=== PATIENT | female | born 1955 | race African-American/Black ===

== ENCOUNTER 2018-02-23 21:11 | Inpatient (IN) | payer OTHER, MEDICAID ==
[~2018-02-23] VITALS: Ht 144.8 cm; Wt 49.9 kg
[~2018-02-23 21:11] MED LIST: FOLI-43 PO; MULT-1116 PO; THIA100T13 PO; UNKOWN
[2018-02-23] MEDS ORDERED: ONDANSETRON HCL 4MG/2ML INJ IV STA (21:27)
[2018-02-23] MEDS ORDERED: MORPHINE SULFATE 4 MG/ML CPJ (NOT FOR IM USE) IV STA (21:27)
[2018-02-24 00:06] LABS: BASOPHILS % 0.4 % (0.0-2.0); EOSINOPHILS % 0.9 % (0.0-5.0); HEMATOCRIT. 25.3 % (36.0-48.0); HEMOGLOBIN. 8.5 g/dL (12.0-16.0); LYMPHOCYTES % 17.9 % (20.0-50.0); MEAN CORPUSCULAR HEMOGLOBIN 30.9 pg (28.0-32.0); MONOCYTES % 8.6 % (2.0-8.0); NEUTROPHILS % 72.2 % (40.0-76.0); PLATELET 90 x1000/uL (130-400); RED BLOOD CELL COUNT 2.75 mill/uL (4.2-5.4); RED CELL DISTRIBUTION WIDTH 18.3 % (11.6-14.6)
[2018-02-24 00:11] LABS: CHLORIDE 109 mEq/L (98-107)
[2018-02-24 00:13] LABS: INR 1.4; PROTHROMBIN TIME 14.3 sec (9.1-11.1)
[2018-02-24] MEDS ORDERED: LEVOFLOXACIN 750MG PREMIX 150 ML IV ONE (02:00)
[2018-02-24] MEDS ORDERED: METRONIDAZOLE 500 MG PREMIX 100 ML IV ONE (02:00)
[2018-02-24 04:46] VITALS: BP 152/77
[2018-02-24 05:24] VITALS: BP 122/77
[2018-02-24] MEDS ORDERED: DOCUSATE SODIUM 100MG CAPSULE PO PRN (06:15)
[2018-02-24] MEDS ORDERED: MORPHINE SULFATE 4 MG/ML CPJ (NOT FOR IM USE) IV PRN (06:15)
[2018-02-24] MEDS ORDERED: ONDANSETRON HCL 4MG/2ML INJ IV PRN (06:15)
[2018-02-24] MEDS ORDERED: NA PHOS,M-B/NA PHOS,DI-BA ENEMA 118ML PR PRN (06:15)
[2018-02-24] MEDS ORDERED: HYDROCODONE/ACETAMINOPHEN 5/325MG TABLET PO PRN (06:15)
[2018-02-24] MEDS ORDERED: GUAIFENESIN 200MG/10ML SUGAR FREE UDC PO PRN (06:15)
[2018-02-24] MEDS ORDERED: CLONIDINE 0.1MG TABLET PO PRN (06:15)
[2018-02-24] MEDS ORDERED: MAGNESIUM/ALUMINUM HYDROXIDE/SIMETHICONE 30ML UDC PO PRN (06:15)
[2018-02-24] MEDS ORDERED: ACETAMINOPHEN 325MG TABLET PO PRN (06:15)
[2018-02-24 08:00] VITALS: BP 130/68
[2018-02-24] MEDS ORDERED: KCL 10MEQ/50ML PREMIX 50 ML IV NR (08:00)
[2018-02-24] MEDS: ENOXAPARIN 40MG/0.4ML SYR SUBCUT SCH (09:00)
[2018-02-24] MEDS: FUROSEMIDE 40MG/4ML VIAL IV SCH (09:10)
[2018-02-24 12:00] VITALS: BP 145/85
[2018-02-24 12:03] LABS: CHLORIDE 107 mEq/L (98-107)
[2018-02-24] MEDS ORDERED: SODIUM BICARBONATE 4% (2.4MEQ) 5ML VIAL IV ONE (12:27)
[2018-02-24] MEDS ORDERED: LIDOCAINE HCL 1% 10 MG/ML 10ML VIAL ONE (12:27)
[2018-02-24 16:00] VITALS: BP 121/85
[2018-02-24] MEDS: LORAZEPAM 2MG/ML CPJ IV PRN (18:42)
[2018-02-24] MEDS: METRONIDAZOLE 500 MG PREMIX 100 ML IV SCH (18:54)
[2018-02-24 18:57] LABS: FOLIC ACID (FOLATE) SERUM 13.5 ng/mL (>5.38)
[2018-02-24 19:15] LABS: HEPATITIS B SURFACE ANTIGEN NEGATIVE
[2018-02-24 19:43] LABS: HEPATITIS B CORE AB IGM NEGATIVE
[2018-02-24 19:44] LABS: HEPATITIS A AB IGM NEGATIVE (NEGATIVE)
[2018-02-24 20:00] VITALS: BP 137/82
[2018-02-24 20:41] LABS: AMMONIA 173 uMol/L (<32)
[2018-02-24] MEDS: LEVOFLOXACIN 500MG PREMIX 100 ML IV SCH (22:12)
[2018-02-24] MEDS ORDERED: POTASSIUM CHLORIDE 20MEQ TABLET SR PO SCH (22:28)
[2018-02-25] VITALS: BP 128/80
[2018-02-25] MEDS: METRONIDAZOLE 500 MG PREMIX 100 ML IV SCH ×3 (01:49→18:17)
[2018-02-25 03:38] LABS: *AMPHETAMINES SCREEN URINE NEGATIVE (NEGATIVE); *BARBITURATES SCREEN URINE NEGATIVE (NEGATIVE); *BENZODIAZEPINES SCREEN URINE NEGATIVE (NEGATIVE); *COCAINE SCREEN URINE NEGATIVE (NEGATIVE); METHADONE URINE SCREEN NEGATIVE (NEGATIVE); OPIATES URINE SCREEN PRESUMTIVE POSITIVE (NEGATIVE)
[2018-02-25 03:39] LABS: CANNABINOID URINE SCREEN NEGATIVE (NEGATIVE); PHENCYCLIDINE URINE SCREEN NEGATIVE (NEGATIVE)
[2018-02-25 04:00] VITALS: BP 124/77
[2018-02-25] MEDS: OMEPRAZOLE 20MG CAPSULE EXTENDED RELEASE PO SCH (07:16)
[2018-02-25 08:00] VITALS: BP 129/76
[2018-02-25] MEDS: FUROSEMIDE 40MG/4ML VIAL IV SCH (08:39)
[2018-02-25] MEDS: ENOXAPARIN 40MG/0.4ML SYR SUBCUT SCH (08:40)
[2018-02-25] MEDS ORDERED: LACTOBACILLUS GG CAPSULE PO SCH (09:00)
[2018-02-25 12:00] VITALS: BP 108/66
[2018-02-25] MEDS ORDERED: LIDOCAINE HCL 1% 10 MG/ML 10ML VIAL ONE (13:26)
[2018-02-25] MEDS ORDERED: SODIUM BICARBONATE 4% (2.4MEQ) 5ML VIAL IV ONE (13:26)
[2018-02-25] MEDS: IPRATROPIUM/ALBUTEROL 0.5-3(2.5)MG/3ML NEB INH PRN (15:42)
[2018-02-25] MEDS: DIPHENHYDRAMINE 50MG/ML VIAL IV PRN (15:52)
[2018-02-25 16:00] VITALS: BP 158/85
[2018-02-25 17:34] LABS: HEMATOCRIT. 31.2 % (36.0-48.0); HEMOGLOBIN. 10.1 g/dL (12.0-16.0); MEAN CORPUSCULAR HEMOGLOBIN 30.5 pg (28.0-32.0); MEAN CORPUSCULAR VOLUME 94.2 fL (81.0-99.0); MEAN PLATELET VOLUME 8.2 fl (7.4-10.4); PLATELET 100 x1000/uL (130-400); RED BLOOD CELL COUNT 3.31 mill/uL (4.2-5.4); RED CELL DISTRIBUTION WIDTH 18.6 % (11.6-14.6)
[2018-02-25 17:41] LABS: INR 1.5; PROTHROMBIN TIME 14.7 sec (9.1-11.1)
[2018-02-25 18:11] LABS: CHLORIDE 107 mEq/L (98-107)
[2018-02-25] MEDS: LACTULOSE 20G/30ML UDC PO SCH ×2 (18:17→23:52)
[2018-02-25 18:18] LABS: AMMONIA 123 uMol/L (<32)
[2018-02-25 18:21] LABS: LDL CHOLESTEROL 55 mg/dL (5-100)
[2018-02-25 18:23] LABS: HDL CHOLESTEROL 24 mg/dL (40-59)
[2018-02-25] MEDS ORDERED: DIATR MEGLU/DIATRIZOATE SOLN 30ML PO SCH (19:00)
[2018-02-25 20:00] VITALS: BP 118/70
[2018-02-25] MEDS: LEVOFLOXACIN 500MG PREMIX 100 ML IV SCH (20:41)
[2018-02-26] VITALS: BP 132/73
[2018-02-26] MEDS: METRONIDAZOLE 500 MG PREMIX 100 ML IV SCH ×3 (03:03→17:34)
[2018-02-26] MEDS: DIPHENHYDRAMINE 50MG/ML VIAL IV PRN (03:40)
[2018-02-26 04:00] VITALS: BP 130/84
[2018-02-26 06:42] LABS: PLATELET ESTIMATE SLIGHTLY DECREASED
[2018-02-26] MEDS: LACTULOSE 20G/30ML UDC PO SCH ×3 (06:47→17:31)
[2018-02-26] MEDS: OMEPRAZOLE 20MG CAPSULE EXTENDED RELEASE PO SCH (06:47)
[2018-02-26 07:23] LABS: INR 1.6; PROTHROMBIN TIME 16.1 sec (9.1-11.1)
[2018-02-26 07:46] LABS: HEMATOCRIT 24.5 % (36.0-48.0); HEMOGLOBIN 8.3 g/dL (12.0-16.0); MEAN CORPUSCULAR HEMOGLOBIN 31.2 pg (28.0-32.0); MEAN CORPUSCULAR VOLUME 92.1 fL (81.0-99.0); PLATELET 95 x1000/uL (130-400); RED BLOOD CELL COUNT 2.66 mill/uL (4.2-5.4); RED CELL DISTRIBUTION WIDTH 17.8 % (11.6-14.6)
[2018-02-26 08:00] VITALS: BP 100/71
[2018-02-26] MEDS: FUROSEMIDE 40MG/4ML VIAL IV SCH ×2 (08:11→08:14)
[2018-02-26] MEDS: ENOXAPARIN 40MG/0.4ML SYR SUBCUT SCH (08:14)
[2018-02-26 09:12] LABS: CHLORIDE 109 mEq/L (98-107)
[2018-02-26] MEDS ORDERED: DIATR MEGLU/DIATRIZOATE SOLN 30ML PO NR (09:50)
[2018-02-26 12:00] VITALS: BP 130/91
[2018-02-26] MEDS ORDERED: IOHEXOL-300 100 ML BOTTLE ONE (14:24)
[2018-02-26] MEDS: IPRATROPIUM/ALBUTEROL 0.5-3(2.5)MG/3ML NEB INH PRN (15:06)
[2018-02-26 16:00] VITALS: BP 147/87
[2018-02-26 20:00] VITALS: BP 105/59
[2018-02-26] MEDS: LEVOFLOXACIN 500MG PREMIX 100 ML IV SCH (20:27)
[2018-02-27] VITALS: BP 99/57
[2018-02-27] MEDS: METRONIDAZOLE 500 MG PREMIX 100 ML IV SCH ×3 (02:56→17:52)
[2018-02-27 04:00] VITALS: BP 138/88
[2018-02-27 07:30] LABS: MEAN CORPUSCULAR VOLUME 93.2 fL (81.0-99.0); MEAN PLATELET VOLUME 8.4 fl (7.4-10.4); PLATELET 111 x1000/uL (130-400); RED CELL DISTRIBUTION WIDTH 18.3 % (11.6-14.6)
[2018-02-27 07:56] LABS: CHLORIDE 109 mEq/L (98-107)
[2018-02-27 08:00] VITALS: BP 129/76
[2018-02-27] MEDS: OMEPRAZOLE 20MG CAPSULE EXTENDED RELEASE PO SCH (08:23)
[2018-02-27] MEDS: FUROSEMIDE 40MG/4ML VIAL IV SCH (08:24)
[2018-02-27] MEDS: ENOXAPARIN 40MG/0.4ML SYR SUBCUT SCH (09:00)
[2018-02-27 11:52] LABS: PLATELET ESTIMATE DECREASED
[2018-02-27 12:00] VITALS: BP 131/73
[2018-02-27 13:10] LABS: ATYPICAL pANCA <1:20 titer (Neg:<1:20)
[2018-02-27 16:00] VITALS: BP 124/69
[2018-02-27 16:53] LABS: AMMONIA 65 uMol/L (<32)
[2018-02-27] MEDS: LACTULOSE 20G/30ML UDC PO SCH ×3 (17:52→23:56)
[2018-02-27 20:00] VITALS: BP 127/76
[2018-02-27] MEDS ORDERED: LEVOFLOXACIN 250MG PREMIX 50 ML IV SCH (21:00)
[2018-02-27] MEDS: LORAZEPAM 2MG/ML CPJ IV PRN (23:54)
[2018-02-28] VITALS: BP 114/60
[2018-02-28] MEDS: METRONIDAZOLE 500 MG PREMIX 100 ML IV SCH ×2 (01:36→10:28)
[2018-02-28 04:00] VITALS: BP 128/77
[2018-02-28] MEDS: LACTULOSE 20G/30ML UDC PO SCH ×2 (06:11→12:00)
[2018-02-28] MEDS: OMEPRAZOLE 20MG CAPSULE EXTENDED RELEASE PO SCH (06:11)
[2018-02-28 07:30] LABS: AMMONIA 62 uMol/L (<32)
[2018-02-28 08:00] VITALS: BP 152/88
[2018-02-28] MEDS: FUROSEMIDE 40MG/4ML VIAL IV SCH (08:38)
[2018-02-28] MEDS: ENOXAPARIN 40MG/0.4ML SYR SUBCUT SCH (08:41)
[2018-02-28 12:00] VITALS: BP 113/54
[2018-02-28 13:06] LABS: SACCHAROMYCES CEREVISIAE IGG 33.3 Units (0.0-24.9)
[2018-02-28 13:17] VITALS: BP 113/54
[2018-03-02 13:09] LABS: FECAL FAT NEUTRAL Normal (.); FECAL FAT TOTAL Normal (.)
[2018-03-02 13:09] LABS: SACCHAROMYCES CEREVISIAE IGM 26.2 Units (0.0-24.9)
== END 2018-02-28 14:20 | disposition home or self-care (01) | DRG 280 ==
LOC: ER 21:11 → 6EST 02-24 01:51 → ENRESERV 02-24 03:00
PROVIDERS: ADMIT Internal Medicine; ATTEND Internal Medicine
PROC: 0W9G3ZZ Drainage of Peritoneal Cavity, Percutaneous Approach (ICD-10-PCS; principal; 2018-02-25)
DX: K70.31 Alcoholic cirrhosis of liver with ascites (principal); D68.9 Coagulation defect, unspecified; D69.6 Thrombocytopenia, unspecified; E87.70 Fluid overload, unspecified; E88.09 Other disorders of plasma-protein metabolism, not elsewhere classified; D64.9 Anemia, unspecified; E11.9 Type 2 diabetes mellitus without complications; E87.6 Hypokalemia; D72.819 Decreased white blood cell count, unspecified; D25.9 Leiomyoma of uterus, unspecified; I10 Essential (primary) hypertension; I25.10 Atherosclerotic heart disease of native coronary artery without angina pectoris; J45.909 Unspecified asthma, uncomplicated; K80.20 Calculus of gallbladder without cholecystitis without obstruction; K57.90 Diverticulosis of intestine, part unspecified, without perforation or abscess without bleeding; B19.20 Unspecified viral hepatitis C without hepatic coma; Z79.899 Other long term (current) drug therapy; Z88.0 Allergy status to penicillin; Z86.73 Personal history of transient ischemic attack (TIA), and cerebral infarction without residual deficits
CPT/HCPCS: 36415; 49083; 74176; 74177; 76705; 80048; 80053; 80061; 80076; 80305; 82040; 82140; 82270; 82607; 82705; 82728; 82746; 83540; 83550; 83615; 83690; 85025; 85027; 85610; 86256; 86671; 86705; 86709; 86803; 87015; 87040; 87045; 87070; 87205; 87340; 87427; 87449; 88108; 88312; 89050; 89055; 93970; 94640; 96365; 96375; 99285; C1893; J1200; J1650; J1940; J1956; J2060; J2270; J2405; J3480; J3490; J7040; J7620; Q9963; Q9967

== ENCOUNTER 2018-03-16 17:31 | Inpatient (IN) | payer OTHER, MEDICAID ==
[~2018-03-16] VITALS: Ht 215.9 cm; Wt 58.1 kg
[~2018-03-16 17:31] MED LIST changes: -UNKOWN
[2018-03-16] MEDS ORDERED: MORPHINE SULFATE 4 MG/ML CPJ (NOT FOR IM USE) IV STA (19:18)
[2018-03-16] MEDS ORDERED: SODIUM CHLORIDE 0.9% 250 ML IV ONE (19:18)
[2018-03-16] MEDS ORDERED: ONDANSETRON HCL 4MG/2ML INJ IV STA (19:18)
[2018-03-16 20:05] LABS: CHLORIDE 112 mEq/L (98-107)
[2018-03-16 20:06] LABS: HEMATOCRIT. 25.1 % (36.0-48.0); HEMOGLOBIN. 8.1 g/dL (12.0-16.0); MEAN CORPUSCULAR HEMOGLOBIN 30.3 pg (28.0-32.0); MEAN CORPUSCULAR VOLUME 93.4 fL (81.0-99.0); MEAN PLATELET VOLUME 7.9 fl (7.4-10.4); PLATELET 74 x1000/uL (130-400); RED BLOOD CELL COUNT 2.68 mill/uL (4.2-5.4); RED CELL DISTRIBUTION WIDTH 19.2 % (11.6-14.6)
[2018-03-16 20:09] LABS: ETHANOL BLOOD < 10 mg/dL
[2018-03-16 20:14] LABS: D-DIMER 15.29 mg/L FEU (<0.50); INR 1.6; PROTHROMBIN TIME 16.2 sec (9.1-11.1)
[2018-03-16 20:56] LABS: PLATELET ESTIMATE DECREASED
[2018-03-16 21:38] LABS: CLARITY URINE CLEAR (CLEAR); COLOR URINE YELLOW (YELLOW); KETONES URINE NEGATIVE (NEGATIVE); LEUKOCYTE ESTERASE URINE 1+ (NEGATIVE); NITRITE URINE NEGATIVE (NEGATIVE); OCCULT BLOOD URINE 2+ (NEGATIVE); PH URINE 6.5 (4.5-8.0); PROTEIN URINE NEGATIVE (NEGATIVE)
[2018-03-16 21:55] LABS: *AMPHETAMINES SCREEN URINE NEGATIVE (NEGATIVE); *BARBITURATES SCREEN URINE NEGATIVE (NEGATIVE)
[2018-03-16 21:56] LABS: *BENZODIAZEPINES SCREEN URINE NEGATIVE (NEGATIVE); *COCAINE SCREEN URINE NEGATIVE (NEGATIVE); CANNABINOID URINE SCREEN NEGATIVE (NEGATIVE); METHADONE URINE SCREEN NEGATIVE (NEGATIVE); OPIATES URINE SCREEN PRESUMTIVE POSITIVE (NEGATIVE); PHENCYCLIDINE URINE SCREEN NEGATIVE (NEGATIVE)
[2018-03-16] MEDS ORDERED: ACETAMINOPHEN 325MG TABLET PO PRN (22:15)
[2018-03-16] MEDS ORDERED: DOCUSATE SODIUM 100MG CAPSULE PO PRN (22:15)
[2018-03-16] MEDS ORDERED: DIPHENHYDRAMINE 50MG/ML VIAL IV PRN (22:15)
[2018-03-16] MEDS ORDERED: GUAIFENESIN 200MG/10ML SUGAR FREE UDC PO PRN (22:15)
[2018-03-16] MEDS ORDERED: CLONIDINE 0.1MG TABLET PO PRN (22:15)
[2018-03-16 23:30] VITALS: BP 146/76
[2018-03-17] VITALS: BP_SYST 146; BP_SYST 175; BP_DIAS 76; BP_DIAS 86
[2018-03-17] MEDS ORDERED: METF500T6 MT (01:34)
[2018-03-17] MEDS ORDERED: PANT40TA4 MT (02:13)
[2018-03-17 06:05] VITALS: BP 139/74
[2018-03-17 06:42] LABS: HEMATOCRIT. 24.6 % (36.0-48.0); HEMOGLOBIN. 8.1 g/dL (12.0-16.0); MEAN CORPUSCULAR HEMOGLOBIN 30.6 pg (28.0-32.0); MEAN CORPUSCULAR VOLUME 93.1 fL (81.0-99.0); MEAN PLATELET VOLUME 7.7 fl (7.4-10.4); PLATELET 63 x1000/uL (130-400); RED BLOOD CELL COUNT 2.64 mill/uL (4.2-5.4); RED CELL DISTRIBUTION WIDTH 19.2 % (11.6-14.6)
[2018-03-17] MEDS ORDERED: DEXTROSE 50% WATER 50ML SYRINGE IV PRN (07:15)
[2018-03-17] MEDS: BLOOD SUGAR DIAGNOSTIC STRIP TEST SCH ×4 (07:20→20:30)
[2018-03-17 07:42] LABS: CHLORIDE 114 mEq/L (98-107)
[2018-03-17] MEDS: INSULIN LISPRO 100 UNITS/ML SUBCUT SCH ×4 (07:50→20:31)
[2018-03-17] MEDS ORDERED: FILGRASTIM-TBO 480 MCG/0.8 ML SYRINGE SQ SCH (08:30)
[2018-03-17] MEDS: AMLODIPINE 10MG TABLET PO SCH (09:13)
[2018-03-17 12:00] VITALS: BP 163/93
[2018-03-17] MEDS: MORPHINE SULFATE 4 MG/ML CPJ (NOT FOR IM USE) IV PRN ×2 (12:27→21:22)
[2018-03-17 13:25] LABS: PLATELET ESTIMATE MARKEDLY DECREASED
[2018-03-17 16:00] VITALS: BP 127/75
[2018-03-17 20:00] VITALS: BP 153/87
[2018-03-17] MEDS: ONDANSETRON HCL 4MG/2ML INJ IV PRN (21:22)
[2018-03-18] VITALS: BP 107/56
[2018-03-18 04:00] VITALS: BP 114/65
[2018-03-18] MEDS: BLOOD SUGAR DIAGNOSTIC STRIP TEST SCH ×4 (06:35→20:31)
[2018-03-18] MEDS: INSULIN LISPRO 100 UNITS/ML SUBCUT SCH ×4 (07:50→20:31)
[2018-03-18 08:00] VITALS: BP 129/60
[2018-03-18] MEDS: AMLODIPINE 10MG TABLET PO SCH (09:40)
[2018-03-18] MEDS: MORPHINE SULFATE 4 MG/ML CPJ (NOT FOR IM USE) IV PRN ×2 (10:46→20:17)
[2018-03-18 12:00] VITALS: BP 123/65
[2018-03-18] MEDS: PHYTONADIONE 10MG/ML AMP SUBCUT NR ×2 (12:27→12:37)
[2018-03-18 13:21] LABS: BASOPHILS % 0.4 % (0.0-2.0); EOSINOPHILS % 1.5 % (0.0-5.0); HEMATOCRIT. 24.8 % (36.0-48.0); HEMOGLOBIN. 8.1 g/dL (12.0-16.0); LYMPHOCYTES % 8.4 % (20.0-50.0); MEAN CORPUSCULAR HEMOGLOBIN 30.7 pg (28.0-32.0); MEAN CORPUSCULAR VOLUME 93.5 fL (81.0-99.0); MEAN PLATELET VOLUME 8.6 fl (7.4-10.4); MONOCYTES % 5.3 % (2.0-8.0); NEUTROPHILS % 84.4 % (40.0-76.0); PLATELET 61 x1000/uL (130-400); RED BLOOD CELL COUNT 2.66 mill/uL (4.2-5.4); RED CELL DISTRIBUTION WIDTH 19.4 % (11.6-14.6)
[2018-03-18 13:27] LABS: INR 1.7; PROTHROMBIN TIME 17.4 sec (9.1-11.1)
[2018-03-18 13:46] LABS: CHLORIDE 111 mEq/L (98-107)
[2018-03-18 16:00] VITALS: BP 112/65
[2018-03-18 20:00] VITALS: BP 123/65
[2018-03-18] MEDS: ONDANSETRON HCL 4MG/2ML INJ IV PRN (20:17)
[2018-03-18] MEDS ORDERED: FILGRASTIM-TBO 480 MCG/0.8 ML SYRINGE SQ SCH (21:00)
[2018-03-19] VITALS: BP 128/66
[2018-03-19 04:00] VITALS: BP 116/67
[2018-03-19] MEDS: BLOOD SUGAR DIAGNOSTIC STRIP TEST SCH ×3 (07:20→17:31)
[2018-03-19] MEDS: INSULIN LISPRO 100 UNITS/ML SUBCUT SCH ×3 (07:50→17:31)
[2018-03-19 08:32] VITALS: BP 113/64
[2018-03-19] MEDS: AMLODIPINE 10MG TABLET PO SCH (08:38)
[2018-03-19] MEDS ORDERED: SODIUM BICARBONATE 4% (2.4MEQ) 5ML VIAL IV ONE (10:11)
[2018-03-19] MEDS ORDERED: LIDOCAINE HCL 1% 10 MG/ML 10ML VIAL ONE (10:11)
[2018-03-19 12:46] VITALS: BP 119/72
[2018-03-19 12:51] VITALS: BP 120/75
[2018-03-19 16:29] VITALS: BP 125/70
== END 2018-03-19 18:02 | disposition home or self-care (01) ==
LOC: ER 17:31 → 6WST 21:25 → EDBEDREQ 21:27 → ENRESERV 21:39
PROVIDERS: ADMIT Hospitalist; ATTEND Hospitalist
PROC: 0W9G3ZZ Drainage of Peritoneal Cavity, Percutaneous Approach (ICD-10-PCS; principal; 2018-03-19)
DX: K74.60 Unspecified cirrhosis of liver (principal); D61.818 Other pancytopenia; D68.9 Coagulation defect, unspecified; I11.0 Hypertensive heart disease with heart failure; I50.9 Heart failure, unspecified; R18.8 Other ascites; Z86.73 Personal history of transient ischemic attack (TIA), and cerebral infarction without residual deficits; Z88.0 Allergy status to penicillin; Z79.899 Other long term (current) drug therapy
CPT/HCPCS: 36415; 49083; 71045; 74018; 80048; 80053; 80305; 81003; 82962; 83690; 83880; 84484; 85025; 85379; 85610; 93005; 96361; 96374; 96375; 99285; A6261; G0482; J1442; J1815; J2270; J2405; J3430; J3490; J7030; J7050

== ENCOUNTER 2018-09-12 09:46 | Emergency (ER) | payer MEDICAID ==
[~2018-09-12] VITALS: Ht 144.8 cm; Wt 77.0 kg
[~2018-09-12 09:46] MED LIST changes: +METF-414 MT; +PANT40TA4 MT
[2018-09-12 11:20] LABS: HEMATOCRIT. 27.9 % (36.0-48.0); HEMOGLOBIN. 8.9 g/dL (12.0-16.0); MEAN CORPUSCULAR HEMOGLOBIN 29.2 pg (28.0-32.0); MEAN CORPUSCULAR VOLUME 91.9 fL (81.0-99.0); MEAN PLATELET VOLUME 7.8 fl (7.4-10.4); PLATELET 108 x1000/uL (130-400); RED BLOOD CELL COUNT 3.04 mill/uL (4.2-5.4); RED CELL DISTRIBUTION WIDTH 20.1 % (11.6-14.6)
[2018-09-12 11:22] LABS: CHLORIDE 105 mEq/L (98-107)
[2018-09-12 11:25] LABS: INR 1.5; PARTIAL THROMBOPLASTIN TIME 36.4 sec (23.4-31.0); PROTHROMBIN TIME 14.7 sec (9.1-11.1)
[2018-09-12 11:51] LABS: PLATELET ESTIMATE DECREASED
[2018-09-12] MEDS ORDERED: LIDOCAINE HCL 1% 20ML VIAL (Pyxis) INJ ONE (15:02)
[2018-09-12] MEDS ORDERED: SODIUM BICARBONATE 4% (2.4MEQ) 5ML VIAL IV ONE (15:02)
[2018-09-12 18:15] VITALS: BP 122/74
== END 2018-09-12 18:35 | disposition home or self-care (01) ==
LOC: ER 09:46
DX: R10.9 Unspecified abdominal pain (principal); I12.9 Hypertensive chronic kidney disease with stage 1 through stage 4 chronic kidney disease, or unspecified chronic kidney disease; E11.22 Type 2 diabetes mellitus with diabetic chronic kidney disease; B20 Human immunodeficiency virus [HIV] disease; J45.909 Unspecified asthma, uncomplicated; N18.9 Chronic kidney disease, unspecified; Z86.73 Personal history of transient ischemic attack (TIA), and cerebral infarction without residual deficits
CPT/HCPCS: 36415; 76705; 80053; 85025; 85610; 85730; 99284; J3490

== ENCOUNTER 2018-10-01 12:37 | Emergency (ER) | payer MEDICAID ==
[~2018-10-01] VITALS: Ht 144.8 cm; Wt 70.0 kg
[2018-10-01 13:48] LABS: HEMATOCRIT. 26.1 % (36.0-48.0); HEMOGLOBIN. 8.6 g/dL (12.0-16.0); MEAN CORPUSCULAR HEMOGLOBIN 29.5 pg (28.0-32.0); MEAN CORPUSCULAR VOLUME 89.3 fL (81.0-99.0); MEAN PLATELET VOLUME 7.6 fl (7.4-10.4); PLATELET 123 x1000/uL (130-400); RED BLOOD CELL COUNT 2.92 mill/uL (4.2-5.4); RED CELL DISTRIBUTION WIDTH 19.9 % (11.6-14.6)
[2018-10-01 13:52] LABS: CHLORIDE 102 mEq/L (98-107)
[2018-10-01 13:55] LABS: INR 1.5; PARTIAL THROMBOPLASTIN TIME 37.5 sec (23.4-31.0); PROTHROMBIN TIME 15.4 sec (9.6-11.0)
[2018-10-01] MEDS ORDERED: MORPHINE SULFATE 4 MG/ML CPJ (NOT FOR IM USE) IV ONE (14:15)
[2018-10-01 14:16] LABS: PLATELET ESTIMATE SLIGHTLY DECREASED
[2018-10-01] MEDS ORDERED: SODIUM BICARBONATE 4% (2.4MEQ) 5ML VIAL IV ONE (14:45)
[2018-10-01 18:50] VITALS: BP 115/69
== END 2018-10-01 18:53 | disposition home or self-care (01) ==
LOC: ER 12:37
DX: R18.8 Other ascites (principal); R06.00 Dyspnea, unspecified; K76.9 Liver disease, unspecified; I11.9 Hypertensive heart disease without heart failure; F17.210 Nicotine dependence, cigarettes, uncomplicated; Z98.890 Other specified postprocedural states; Z86.73 Personal history of transient ischemic attack (TIA), and cerebral infarction without residual deficits; Z86.19 Personal history of other infectious and parasitic diseases; Z88.0 Allergy status to penicillin; Z71.6 Tobacco abuse counseling
CPT/HCPCS: 36415; 49083; 71045; 80053; 83690; 84484; 85025; 85610; 85730; 93005; 96374; 99284; 99406; J2270; J3490; Z7610

== ENCOUNTER 2018-10-08 07:39 | Inpatient (IN) | payer MEDICAID ==
[~2018-10-08] VITALS: Ht 165.1 cm; Wt 40.6 kg
[2018-10-08] MEDS ORDERED: MORPHINE SULFATE 4 MG/ML CPJ (NOT FOR IM USE) IV STA (08:03)
[2018-10-08] MEDS ORDERED: LIDOCAINE HCL 1% 20ML VIAL (Pyxis) INJ ONE (08:40)
[2018-10-08] MEDS ORDERED: SODIUM BICARBONATE 4% (2.4MEQ) 5ML VIAL IV ONE (08:40)
[2018-10-08 10:09] LABS: CHLORIDE 102 mEq/L (98-107)
[2018-10-08 10:12] LABS: INR 1.5; PROTHROMBIN TIME 14.8 sec (9.6-11.0)
[2018-10-08 10:14] LABS: BASOPHILS % 0.9 % (0.0-2.0); EOSINOPHILS % 1.5 % (0.0-5.0); HEMOGLOBIN. 9.4 g/dL (12.0-16.0); LYMPHOCYTES % 24.1 % (20.0-50.0); MEAN CORPUSCULAR HEMOGLOBIN 29.2 pg (28.0-32.0); MEAN CORPUSCULAR VOLUME 86.9 fL (81.0-99.0); MEAN PLATELET VOLUME 7.7 fl (7.4-10.4); NEUTROPHILS % 56.5 % (40.0-76.0); PLATELET 141 x1000/uL (130-400); RED BLOOD CELL COUNT 3.23 mill/uL (4.2-5.4); RED CELL DISTRIBUTION WIDTH 19.5 % (11.6-14.6)
[2018-10-08] MEDS ORDERED: ONDANSETRON HCL 4MG/2ML INJ IV PRN (11:15)
[2018-10-08] MEDS ORDERED: CLONIDINE 0.1MG TABLET PO PRN (11:15)
[2018-10-08] MEDS ORDERED: DOCUSATE SODIUM 100MG CAPSULE PO PRN (11:15)
[2018-10-08] MEDS ORDERED: LACTULOSE 20G/30ML UDC PO ONE (11:15)
[2018-10-08] MEDS ORDERED: GUAIFENESIN 200MG/10ML SUGAR FREE UDC PO PRN (11:15)
[2018-10-08] MEDS ORDERED: IPRATROPIUM/ALBUTEROL 0.5-3(2.5)MG/3ML NEB INH PRN (11:15)
[2018-10-08] MEDS ORDERED: MAGNESIUM/ALUMINUM HYDROXIDE/SIMETHICONE 30ML UDC PO PRN (11:15)
[2018-10-08 11:41] LABS: PHOSPHORUS 3.5 mg/dL (2.5-4.9)
[2018-10-08 14:35] LABS: CREATINE KINASE MB FRACTION 1.6 ng/mL (0.5-3.6)
[2018-10-08 18:19] VITALS: BP 177/101
[2018-10-08 20:00] VITALS: BP 121/65
[2018-10-08] MEDS: RIFAXIMIN 550 MG TABLET PO SCH (21:36)
[2018-10-08] MEDS: LACTULOSE 20G/30ML UDC PO SCH (21:37)
[2018-10-08] MEDS ORDERED: ALBUMIN HUMAN 25GM/100ML (25%) IV NR (22:30)
[2018-10-09] VITALS: BP 121/75
[2018-10-09 00:45] LABS: CREATINE KINASE MB FRACTION 1.7 ng/mL (0.5-3.6)
[2018-10-09] MEDS: MORPHINE SULFATE 4 MG/ML CPJ (NOT FOR IM USE) IV PRN ×2 (01:54→20:44)
[2018-10-09] MEDS: DIPHENHYDRAMINE 50MG/ML VIAL IV PRN ×2 (02:03→21:03)
[2018-10-09 04:00] VITALS: BP 115/77
[2018-10-09] MEDS: LACTULOSE 20G/30ML UDC PO SCH ×3 (05:04→21:02)
[2018-10-09 06:45] LABS: HEMATOCRIT. 23.8 % (36.0-48.0); HEMOGLOBIN. 7.9 g/dL (12.0-16.0); MEAN CORPUSCULAR HEMOGLOBIN 29.8 pg (28.0-32.0); MEAN PLATELET VOLUME 7.8 fl (7.4-10.4); PLATELET 75 x1000/uL (130-400); RED BLOOD CELL COUNT 2.64 mill/uL (4.2-5.4); RED CELL DISTRIBUTION WIDTH 20.1 % (11.6-14.6)
[2018-10-09 08:00] VITALS: BP 118/70
[2018-10-09 08:12] LABS: PLATELET ESTIMATE DECREASED
[2018-10-09 08:16] LABS: CHLORIDE 104 mEq/L (98-107)
[2018-10-09 08:24] LABS: HDL CHOLESTEROL 18 mg/dL (40-59)
[2018-10-09 08:28] LABS: LDL CHOLESTEROL 58 mg/dL (5-100); PHOSPHORUS 3.7 mg/dL (2.5-4.9)
[2018-10-09 08:30] LABS: CREATINE KINASE 113 IU/L (26-192)
[2018-10-09 08:42] VITALS: BP 110/74
[2018-10-09] MEDS ORDERED: ALBUMIN HUMAN 25GM/100ML (25%) IV SCH (09:00)
[2018-10-09] MEDS ORDERED: LIDOCAINE HCL/EPINEPHRINE 1%-EPI 1:100,000 20 ML VIAL ONE (12:38)
[2018-10-09] MEDS ORDERED: SODIUM BICARBONATE 4% (2.4MEQ) 5ML VIAL IV ONE (12:39)
[2018-10-09] MEDS ORDERED: LIDOCAINE HCL 1% 20ML VIAL (Pyxis) INJ ONE (12:41)
[2018-10-09] MEDS: RIFAXIMIN 550 MG TABLET PO SCH ×2 (15:21→21:00)
[2018-10-09 16:00] VITALS: BP 113/64
[2018-10-09 20:00] VITALS: BP 124/54
[2018-10-10] VITALS: BP 127/63
[2018-10-10 04:00] VITALS: BP 127/70
[2018-10-10] MEDS: LACTULOSE 20G/30ML UDC PO SCH ×3 (05:38→21:26)
[2018-10-10 06:15] LABS: HIV SCREEN 4G Non Reactive (Non Reactive)
[2018-10-10 07:05] LABS: BASOPHILS % 0.2 % (0.0-2.0); EOSINOPHILS % 1.2 % (0.0-5.0); HEMATOCRIT. 26.9 % (36.0-48.0); HEMOGLOBIN. 8.7 g/dL (12.0-16.0); LYMPHOCYTES % 17.4 % (20.0-50.0); MEAN CORPUSCULAR HEMOGLOBIN 29.1 pg (28.0-32.0); MEAN CORPUSCULAR VOLUME 89.8 fL (81.0-99.0); MEAN PLATELET VOLUME 7.4 fl (7.4-10.4); MONOCYTES % 8.9 % (2.0-8.0); NEUTROPHILS % 72.3 % (40.0-76.0); PLATELET 91 x1000/uL (130-400); RED BLOOD CELL COUNT 2.99 mill/uL (4.2-5.4); RED CELL DISTRIBUTION WIDTH 20.3 % (11.6-14.6)
[2018-10-10 07:33] LABS: CHLORIDE 108 mEq/L (98-107)
[2018-10-10 08:00] VITALS: BP 111/67
[2018-10-10 08:13] LABS: PHOSPHORUS 2.7 mg/dL (2.5-4.9)
[2018-10-10 08:19] LABS: A/G RATIO 0.5 (0.7-1.7); ALBUMIN 2.6 g/dL (2.9-4.4); ALPHA-1-GLOBULIN 0.2 g/dL (0.0-0.4); ALPHA-2-GLOBULIN 0.3 g/dL (0.4-1.0); BETA GLOBULIN 1.1 g/dL (0.7-1.3); GAMMA GLOBULINS 3.7 g/dL (0.4-1.8); GLOBULIN TOTAL 5.3 g/dL (2.2-3.9); M-SPIKE Not Observed g/dL (Not Observed); TOTAL PROTEIN SERUM 7.9 g/dL (6.0-8.5)
[2018-10-10] MEDS: RIFAXIMIN 550 MG TABLET PO SCH ×2 (08:40→21:25)
[2018-10-10] MEDS ORDERED: POTASSIUM CHLORIDE 20MEQ TABLET SR PO NR (09:15)
[2018-10-10 11:51] VITALS: BP 138/66
[2018-10-10 16:00] VITALS: BP 146/64
[2018-10-10 20:00] VITALS: BP 140/70
[2018-10-10] MEDS: DIPHENHYDRAMINE 50MG/ML VIAL IV PRN (22:45)
[2018-10-11] VITALS: BP 135/64
[2018-10-11 04:00] VITALS: BP 134/71
[2018-10-11] MEDS: LACTULOSE 20G/30ML UDC PO SCH ×3 (05:45→21:41)
[2018-10-11 07:28] LABS: BASOPHILS % 0.3 % (0.0-2.0); EOSINOPHILS % 1.9 % (0.0-5.0); HEMATOCRIT. 28.2 % (36.0-48.0); HEMOGLOBIN. 9.1 g/dL (12.0-16.0); LYMPHOCYTES % 13.4 % (20.0-50.0); MEAN CORPUSCULAR HEMOGLOBIN 28.8 pg (28.0-32.0); MEAN CORPUSCULAR VOLUME 89.1 fL (81.0-99.0); MEAN PLATELET VOLUME 7.6 fl (7.4-10.4); MONOCYTES % 12.3 % (2.0-8.0); NEUTROPHILS % 72.1 % (40.0-76.0); PLATELET 94 x1000/uL (130-400); RED BLOOD CELL COUNT 3.16 mill/uL (4.2-5.4); RED CELL DISTRIBUTION WIDTH 19.9 % (11.6-14.6)
[2018-10-11 07:52] LABS: CHLORIDE 106 mEq/L (98-107)
[2018-10-11 08:00] VITALS: BP 116/69
[2018-10-11 08:00] LABS: PHOSPHORUS 2.1 mg/dL (2.5-4.9)
[2018-10-11] MEDS: RIFAXIMIN 550 MG TABLET PO SCH ×2 (09:39→21:41)
[2018-10-11 12:00] VITALS: BP 110/71
[2018-10-11] MEDS ORDERED: MAGNESIUM 2 G PREMIX 50 ML IV SCH (14:00)
[2018-10-11 16:00] VITALS: BP 127/55
[2018-10-11 20:00] VITALS: BP 121/67
[2018-10-11] MEDS ORDERED: DEXTROSE 50% WATER 50ML SYRINGE IV PRN (22:15)
[2018-10-12] VITALS: BP 114/58
[2018-10-12 04:00] VITALS: BP 110/67
[2018-10-12] MEDS: LACTULOSE 20G/30ML UDC PO SCH ×3 (06:30→21:42)
[2018-10-12] MEDS: BLOOD SUGAR DIAGNOSTIC STRIP TEST SCH ×4 (07:59→20:57)
[2018-10-12] MEDS: INSULIN LISPRO 100 UNITS/ML SUBCUT SCH ×5 (07:59→20:57)
[2018-10-12 08:00] VITALS: BP 108/74
[2018-10-12] MEDS: RIFAXIMIN 550 MG TABLET PO SCH ×2 (11:45→20:52)
[2018-10-12 12:00] VITALS: BP 116/62
[2018-10-12] MEDS ORDERED: LACT10SO7 PO (15:31)
[2018-10-12] MEDS ORDERED: RIFA550T PO (15:31)
[2018-10-12 15:38] VITALS: BP 116/69
[2018-10-12 20:01] VITALS: BP 129/80
[2018-10-13] VITALS (7 sets, daily range): BP systolic 102–128; BP diastolic 54–75
[2018-10-13] MEDS: LACTULOSE 20G/30ML UDC PO SCH ×2 (05:45→14:00)
[2018-10-13 06:23] LABS: HEMATOCRIT. 25.1 % (36.0-48.0); HEMOGLOBIN. 8.2 g/dL (12.0-16.0); MEAN CORPUSCULAR HEMOGLOBIN 28.9 pg (28.0-32.0); MEAN CORPUSCULAR VOLUME 88.5 fL (81.0-99.0); MEAN PLATELET VOLUME 7.3 fl (7.4-10.4); PLATELET 95 x1000/uL (130-400); RED BLOOD CELL COUNT 2.84 mill/uL (4.2-5.4); RED CELL DISTRIBUTION WIDTH 19.6 % (11.6-14.6)
[2018-10-13 07:29] LABS: CHLORIDE 102 mEq/L (98-107)
[2018-10-13 07:35] LABS: PHOSPHORUS 2.4 mg/dL (2.5-4.9)
[2018-10-13] MEDS ORDERED: LIDOCAINE HCL 1% 20ML VIAL (Pyxis) INJ ONE (07:36)
[2018-10-13] MEDS ORDERED: SODIUM BICARBONATE 4% (2.4MEQ) 5ML VIAL IV ONE (07:36)
[2018-10-13] MEDS: BLOOD SUGAR DIAGNOSTIC STRIP TEST SCH ×2 (07:47→12:40)
[2018-10-13] MEDS: INSULIN LISPRO 100 UNITS/ML SUBCUT SCH ×2 (07:47→13:10)
[2018-10-13] MEDS: RIFAXIMIN 550 MG TABLET PO SCH (09:24)
[2018-10-13 12:05] LABS: PLATELET ESTIMATE DECREASED
== END 2018-10-13 17:50 | DRG 279 ==
LOC: ER 07:39 → 7WST 11:06 → EDBEDREQTM 11:09 → EDBEDREQ 11:09 → ENRESERV 15:10
PROVIDERS: ADMIT Internal Medicine; ATTEND Internal Medicine
PROC: 0W9G3ZZ Drainage of Peritoneal Cavity, Percutaneous Approach (ICD-10-PCS; principal; 2018-10-09)
PROC: 0W9G3ZZ Drainage of Peritoneal Cavity, Percutaneous Approach (ICD-10-PCS; 2018-10-13)
DX: K72.90 Hepatic failure, unspecified without coma (principal); N17.0 Acute kidney failure with tubular necrosis; G93.41 Metabolic encephalopathy; D61.818 Other pancytopenia; E46 Unspecified protein-calorie malnutrition; K70.31 Alcoholic cirrhosis of liver with ascites; Z66 Do not resuscitate; E87.1 Hypo-osmolality and hyponatremia; E11.9 Type 2 diabetes mellitus without complications; D68.4 Acquired coagulation factor deficiency; I10 Essential (primary) hypertension; B19.20 Unspecified viral hepatitis C without hepatic coma; J45.909 Unspecified asthma, uncomplicated; Z82.49 Family history of ischemic heart disease and other diseases of the circulatory system; Z83.3 Family history of diabetes mellitus; Z86.73 Personal history of transient ischemic attack (TIA), and cerebral infarction without residual deficits; Z79.84 Long term (current) use of oral hypoglycemic drugs; Z88.0 Allergy status to penicillin; Z79.899 Other long term (current) drug therapy; Z98.891 History of uterine scar from previous surgery; Z68.1 Body mass index [BMI] 19.9 or less, adult
CPT/HCPCS: 36415; 49083; 76705; 76770; 80048; 80061; 80076; 82140; 82533; 82550; 82553; 82962; 83735; 84100; 84155; 84165; 84443; 87389; 93970; 96374; 96375; 97162; 97166; 97530; 97535; 99285; J1200; J2270; J3475; J3490; J7050; P9047

== ENCOUNTER 2018-11-21 19:52 | Inpatient (IN) | payer MEDICAID ==
[~2018-11-21] VITALS: Ht 144.8 cm; Wt 66.7 kg
[~2018-11-21 19:52] MED LIST changes: +LACT10SO7 PO; -METF-414 MT; +RIFA550T PO
[2018-11-21] MEDS ORDERED: LEVOFLOXACIN 750MG PREMIX 150 ML IV ONE (20:45)
[2018-11-21] MEDS ORDERED: METRONIDAZOLE 500 MG PREMIX 100 ML IV ONE (20:45)
[2018-11-21] MEDS ORDERED: ONDANSETRON HCL 4MG/2ML INJ IV STA (21:23)
[2018-11-21] MEDS ORDERED: MORPHINE SULFATE 4 MG/ML CPJ (NOT FOR IM USE) IV STA (21:23)
[2018-11-21 21:34] LABS: EOSINOPHILS % 5.5 % (0.0-5.0); HEMATOCRIT. 27.4 % (36.0-48.0); LYMPHOCYTES % 25.2 % (20.0-50.0); MEAN CORPUSCULAR VOLUME 94.4 fL (81.0-99.0); MEAN PLATELET VOLUME 7.5 fl (7.4-10.4); MONOCYTES % 14.9 % (2.0-8.0); NEUTROPHILS % 53.4 % (40.0-76.0); PLATELET 102 x1000/uL (130-400); RED BLOOD CELL COUNT 2.91 mill/uL (4.2-5.4); RED CELL DISTRIBUTION WIDTH 21.9 % (11.6-14.6)
[2018-11-21 21:35] LABS: CHLORIDE 114 mEq/L (98-107)
[2018-11-21 21:38] LABS: INR 1.3; PARTIAL THROMBOPLASTIN TIME 39.4 sec (23.4-31.0); PROTHROMBIN TIME 13.7 sec (9.6-11.0)
[2018-11-21] MEDS ORDERED: POTASSIUM CHLORIDE 20MEQ TABLET SR PO ONE (22:30)
[2018-11-21] MEDS ORDERED: FUROSEMIDE 40MG/4ML VIAL IVP ONE (22:30)
[2018-11-22] VITALS (9 sets, daily range): BP systolic 102–143; BP diastolic 45–86
[2018-11-22] MEDS ORDERED: LACTULOSE 20G/30ML UDC PO PRN (06:30)
[2018-11-22] MEDS ORDERED: FERR325T6 PO (06:33)
[2018-11-22] MEDS ORDERED: FERR324T4 MT (06:33)
[2018-11-22] MEDS ORDERED: OMEPRAZOLE 20MG CAPSULE EXTENDED RELEASE PO SCH (06:45)
[2018-11-22 07:02] LABS: CHLORIDE 114 mEq/L (98-107)
[2018-11-22 07:10] LABS: HEMATOCRIT. 26.3 % (36.0-48.0); HEMOGLOBIN. 8.6 g/dL (12.0-16.0); MEAN CORPUSCULAR HEMOGLOBIN 30.7 pg (28.0-32.0); MEAN CORPUSCULAR VOLUME 94.4 fL (81.0-99.0); MEAN PLATELET VOLUME 7.7 fl (7.4-10.4); PLATELET 90 x1000/uL (130-400); RED BLOOD CELL COUNT 2.79 mill/uL (4.2-5.4); RED CELL DISTRIBUTION WIDTH 22.2 % (11.6-14.6)
[2018-11-22] MEDS ORDERED: POTASSIUM CHLORIDE 20MEQ TABLET SR PO NR (08:15)
[2018-11-22] MEDS ORDERED: SPIRONOLACTONE 50MG TABLET PO SCH ×2 (09:00)
[2018-11-22] MEDS ORDERED: FOLIC ACID 1MG TABLET PO SCH (09:00)
[2018-11-22] MEDS: FUROSEMIDE 40MG/4ML VIAL IVP SCH ×2 (09:28→22:00)
[2018-11-22] MEDS ORDERED: LIDOCAINE HCL 1% 20ML VIAL (Pyxis) INJ ONE (10:48)
[2018-11-22] MEDS ORDERED: SODIUM BICARBONATE 4% (2.4MEQ) 5ML VIAL IV ONE (10:48)
[2018-11-22 16:21] LABS: PLATELET ESTIMATE DECREASED
[2018-11-22] MEDS ORDERED: METFORMIN HCL 500MG TABLET PO SCH (17:15)
== END 2018-11-23 00:22 | disposition short-term general hospital (02) ==
LOC: ER 19:52 → 5WST 23:25 → EDBEDREQ 23:36 → EDBEDREQTM 23:36 → ENRESERV 23:42
PROVIDERS: ADMIT Internal Medicine; ATTEND Internal Medicine
PROC: 0W9G3ZZ Drainage of Peritoneal Cavity, Percutaneous Approach (ICD-10-PCS; principal; 2018-11-22)
DX: K74.60 Unspecified cirrhosis of liver (principal); E43 Unspecified severe protein-calorie malnutrition; D61.818 Other pancytopenia; R18.8 Other ascites; E87.8 Other disorders of electrolyte and fluid balance, not elsewhere classified; F17.210 Nicotine dependence, cigarettes, uncomplicated; I10 Essential (primary) hypertension; E87.6 Hypokalemia; K80.20 Calculus of gallbladder without cholecystitis without obstruction; B19.20 Unspecified viral hepatitis C without hepatic coma; E11.9 Type 2 diabetes mellitus without complications; Z79.84 Long term (current) use of oral hypoglycemic drugs; Z86.73 Personal history of transient ischemic attack (TIA), and cerebral infarction without residual deficits; Z88.0 Allergy status to penicillin; Z68.31 Body mass index [BMI] 31.0-31.9, adult
CPT/HCPCS: 36415; 49083; 71045; 74176; 80048; 80076; 82140; 83605; 83880; 84484; 93005; 93970; 96374; 99285; J1940; J1956; J2270; J2405; J3490

== ENCOUNTER 2018-12-13 20:23 | Emergency (ER) | payer MEDICAID ==
[~2018-12-13] VITALS: Ht 160 cm; Wt 64.0 kg
[~2018-12-13 20:23] MED LIST changes: +FERR325T6 PO
[2018-12-13] MEDS ORDERED: MORPHINE SULFATE 4 MG/ML CPJ (NOT FOR IM USE) IV STA (23:19)
[2018-12-13] MEDS ORDERED: ONDANSETRON HCL 4MG/2ML INJ IV STA (23:19)
[2018-12-13 23:35] LABS: CHLORIDE 109 mEq/L (98-107); HEMATOCRIT. 30.6 % (36.0-48.0); HEMOGLOBIN. 10.2 g/dL (12.0-16.0); MEAN CORPUSCULAR HEMOGLOBIN 31.6 pg (28.0-32.0); MEAN CORPUSCULAR VOLUME 94.7 fL (81.0-99.0); RED BLOOD CELL COUNT 3.23 mill/uL (4.2-5.4); RED CELL DISTRIBUTION WIDTH 17.5 % (11.6-14.6)
[2018-12-13 23:39] LABS: INR 1.4; PROTHROMBIN TIME 14.3 sec (9.6-11.0)
[2018-12-14 03:06] LABS: MEAN PLATELET VOLUME 8.1 fl (7.4-10.4); PLATELET 93 x1000/uL (130-400)
[2018-12-14 03:55] LABS: PLATELET ESTIMATE DECREASED
[2018-12-14 08:08] VITALS: BP 105/52
== END 2018-12-14 08:30 | disposition short-term general hospital (02) ==
LOC: ER 21:00 → CANBEDREQ 12-14 11:29
DX: R18.8 Other ascites (principal); R06.02 Shortness of breath; E11.9 Type 2 diabetes mellitus without complications; Z86.19 Personal history of other infectious and parasitic diseases; Z86.73 Personal history of transient ischemic attack (TIA), and cerebral infarction without residual deficits; Z88.0 Allergy status to penicillin; Z88.1 Allergy status to other antibiotic agents; Z79.899 Other long term (current) drug therapy
CPT/HCPCS: 36415; 71045; 80053; 85025; 85610; 96374; 96375; 99285; J2270; J2405